=== PATIENT | female | born 1960 | race Caucasian/White ===

== ENCOUNTER 2017-09-29 23:25 | Emergency (ER) | payer MEDICAID ==
[~2017-09-29] VITALS: Ht 165.1 cm; Wt 119.8 kg
[2017-09-29 23:27] VITALS: BP 128/92
[2017-09-30] MEDS ORDERED: NYSTATIN TOPICAL POWDER 15GM TP ONE
== END 2017-09-30 00:09 | disposition home or self-care (01) ==
LOC: ED 23:59
DX: J02.0 Streptococcal pharyngitis (principal); B37.89 Other sites of candidiasis; J45.909 Unspecified asthma, uncomplicated
CPT/HCPCS: 82962; 99283

== ENCOUNTER → 2020-03-09 | Outpatient (CLI) | payer MEDICAID ==
[~2020-03-09] MED LIST: OMNIPAQUE 350 MG/ML, 150 ML BOTTLE ONE
== END | disposition home or self-care (01) ==
LOC: CFH 12:15
PROVIDERS: ATTEND Internal Medicine Cardiovascular Disease
DX: Z13.6 Encounter for screening for cardiovascular disorders (principal); I48.0 Paroxysmal atrial fibrillation
CPT/HCPCS: 71046; 75572; Q9967

== ENCOUNTER → 2020-03-09 | Outpatient (CLI) | payer MEDICAID | END | disposition home or self-care (01) | LOC: STAR 13:41 | PROVIDERS: ATTEND Anesthesiology | DX: Z20.828 Contact with and (suspected) exposure to other viral communicable diseases (principal) | CPT/HCPCS: 87635 ==

== ENCOUNTER 2020-03-14 06:01 | Observation (INO) | payer MEDICAID ==
[~2020-03-14] VITALS: Ht 165.1 cm; Wt 149.9 kg
[2020-03-14 06:26] VITALS: BP 137/90
[2020-03-14] MEDS ORDERED: MOME13HF3 INH (06:41)
[2020-03-14] MEDS ORDERED: LOSA50TA14 PO (06:41)
[2020-03-14] MEDS ORDERED: POTA10TA6 PO (06:41)
[2020-03-14] MEDS ORDERED: RIVA20TA PO (06:41)
[2020-03-14] MEDS ORDERED: FURO20TA3 PO (06:41)
[2020-03-14] MEDS ORDERED: AMIO200T42 PO (06:41)
[2020-03-14] MEDS ORDERED: ATOR20TA37 PO (06:41)
[2020-03-14] MEDS ORDERED: SODIUM CHLORIDE 0.9% 1,000 ML IV SCH ×2 (07:00)
[2020-03-14 07:06] LABS: BASOPHILS % (AUTO) 1 % (0-1); EOSINOPHILS % (AUTO) 3 % (1-7); LYMPHOCYTES % (AUTO) 26 % (22-44); MD NO; MEAN CORPUSCULAR HEMOGLOBIN 31.2 pg (27.0-34.8); MEAN CORPUSCULAR HGB CONC 32.7 g/dL (32.4-35.8); MONOCYTES % (AUTO) 8 % (2-9); NEUTROPHILS % (AUTO) 62 % (42-75); PLATELET COUNT 315 x10^3/uL (130-400); RED BLOOD COUNT 4.49 x10^6/uL (3.82-5.3); RED CELL DISTRIBUTION WIDTH 14.9 % (9.6-15.2)
[2020-03-14 07:13] LABS: ANION GAP 8 mmol/L (5-15); CALCIUM 9.3 mg/dL (8.5-10.1); CHLORIDE 105 mmol/L (98-107); CREATININE 0.85 mg/dL (0.55-1.02)
[2020-03-14] MEDS ORDERED: FENTANYL PF 100 MCG/2ML ONE (07:36)
[2020-03-14] MEDS ORDERED: LABETALOL 5MG/ML, 20ML IV PRN (08:00)
[2020-03-14] MEDS ORDERED: FENTANYL PF 100 MCG/2ML IV PRN (08:00)
[2020-03-14] MEDS ORDERED: MEPERIDINE/PF 25MG/0.5ML IVPush PRN (08:00)
[2020-03-14] MEDS ORDERED: OXYcodone 5 MG/5 ML ORAL.SOL UDC PO PRN (08:00)
[2020-03-14] MEDS ORDERED: EPHEDRINE 50 MG/ML, 1ML IVPush PRN (08:00)
[2020-03-14] MEDS ORDERED: ONDANSETRON 2MG/ML, 2ML IVPush PRN (08:00)
[2020-03-14] MEDS ORDERED: ACETAMINOPHEN 325 MG TABLET PO PRN ×2 (08:00→12:30)
[2020-03-14] MEDS ORDERED: PROMETHAZINE 25 MG/ML, 1ML IVPush PRN (08:00)
[2020-03-14] MEDS ORDERED: hydrALAzine 20 MG/ML, 1ML IV PRN (08:00)
[2020-03-14] MEDS ORDERED: HYDROmorphone 1 MG/ML, 1ML INJ IVPush PRN (08:00)
[2020-03-14] MEDS ORDERED: RIVAROXABAN 20 MG TABLET ONE (08:13)
[2020-03-14] MEDS ORDERED: LIDOCAINE 2%, 20ML ONE (08:23)
[2020-03-14] MEDS ORDERED: PROPOFOL 10 MG/ML, 20ML ONE (08:38)
[2020-03-14] MEDS ORDERED: ROCURONIUM 10MG/ML,5ML ONE ×2 (08:38→11:04)
[2020-03-14] MEDS ORDERED: DEXAMETHASONE 4 MG/ML, 1ML ONE ×2 (08:38→08:39)
[2020-03-14] MEDS ORDERED: ONDANSETRON 2MG/ML, 2ML ONE (08:38)
[2020-03-14] MEDS ORDERED: SUCCINYLCHOLINE 20 MG/ML, 10ML ONE (08:38)
[2020-03-14] MEDS ORDERED: SUGAMMADEX 200 MG/2 ML IVPush ONE ×2 (08:39)
[2020-03-14] MEDS: RIVAROXABAN 20 MG TABLET PO SCH (12:30)
[2020-03-14 13:48] VITALS: BP 128/85
[2020-03-14 17:06] LABS: BASOPHILS % (AUTO) 0 % (0-1); EOSINOPHILS % (AUTO) 0 % (1-7); LYMPHOCYTES % (AUTO) 5 % (22-44); MEAN CORPUSCULAR HEMOGLOBIN 31.1 pg (27.0-34.8); MEAN CORPUSCULAR HGB CONC 32.6 g/dL (32.4-35.8); MONOCYTES % (AUTO) 2 % (2-9); NEUTROPHILS % (AUTO) 93 % (42-75); PLATELET COUNT 298 x10^3/uL (130-400); RED BLOOD COUNT 4.42 x10^6/uL (3.82-5.3); RED CELL DISTRIBUTION WIDTH 14.8 % (9.6-15.2)
[2020-03-14 17:29] LABS: MD SCAN
[2020-03-14] MEDS: BENZONATATE 100 MG CAPSULE PO SCH ×2 (17:34→23:02)
[2020-03-14] MEDS: HYDROcodone/APAP 5/325 TABLET PO PRN ×2 (17:36→23:46)
[2020-03-14 19:31] VITALS: BP 101/70
[2020-03-14] MEDS: ATORVASTATIN 20 MG TABLET PO SCH ×2 (21:00→23:02)
[2020-03-14] MEDS ORDERED: RIVAROXABAN 20 MG TABLET PO SCH (21:00)
[2020-03-14] MEDS: COLCHICINE 0.6 MG CAPSULE PO SCH (23:02)
[2020-03-15 01:30] VITALS: BP 117/79
[2020-03-15 05:58] VITALS: BP 170/68
[2020-03-15 06:18] LABS: BASOPHILS % (AUTO) 0 % (0-1); EOSINOPHILS % (AUTO) 0 % (1-7); LYMPHOCYTES % (AUTO) 10 % (22-44); MEAN CORPUSCULAR HEMOGLOBIN 31.9 pg (27.0-34.8); MEAN CORPUSCULAR HGB CONC 32.8 g/dL (32.4-35.8); MONOCYTES % (AUTO) 8 % (2-9); NEUTROPHILS % (AUTO) 83 % (42-75); PLATELET COUNT 329 x10^3/uL (130-400); RED BLOOD COUNT 3.99 x10^6/uL (3.82-5.3); RED CELL DISTRIBUTION WIDTH 14.9 % (9.6-15.2)
[2020-03-15 06:22] LABS: MD NO
[2020-03-15 08:13] VITALS: BP 115/74
[2020-03-15] MEDS ORDERED: POTASSIUM CHLORIDE 10 MEQ TABLET.ER PO SCH (09:00)
[2020-03-15] MEDS ORDERED: LOSARTAN 50MG TABLET PO SCH (09:00)
[2020-03-15] MEDS ORDERED: AMIODARONE 200 MG TABLET PO SCH (09:00)
[2020-03-15] MEDS ORDERED: FUROSEMIDE 20 MG TABLET PO SCH (09:00)
[2020-03-15] MEDS: COLCHICINE 0.6 MG CAPSULE PO SCH (09:47)
[2020-03-15] MEDS: RIVAROXABAN 20 MG TABLET PO SCH (09:47)
[2020-03-15] MEDS: BENZONATATE 100 MG CAPSULE PO SCH (09:48)
[2020-03-15] MEDS ORDERED: BENZ-17 PO (10:21)
[2020-03-15] MEDS ORDERED: COLC0.6C3 PO (10:21)
[2020-03-15] MEDS ORDERED: AMIO200T42 PO (10:22)
== END 2020-03-15 13:39 | disposition home or self-care (01) ==
LOC: CACL 06:01 → ORIP 12:13 → 5SO 13:48 → DCLOUNGE 03-15 13:25
PROVIDERS: ADMIT Internal Medicine Cardiovascular Disease; ATTEND Internal Medicine Cardiovascular Disease
DX: I48.91 Unspecified atrial fibrillation (principal); I48.92 Unspecified atrial flutter; E78.5 Hyperlipidemia, unspecified; I11.0 Hypertensive heart disease with heart failure; I50.9 Heart failure, unspecified; J44.9 Chronic obstructive pulmonary disease, unspecified; F15.11 Other stimulant abuse, in remission; Z79.899 Other long term (current) drug therapy
CPT/HCPCS: 36415; 71045; 80048; 85025; 85347; 93306; 93312; 93321; 93325; 93613; 93655; 93656; 93657; 93662; C1730; C1732; C1759; C1766; C1769; C1893; C1894; G0378; J0330; J1100; J2405; J2704; J3010; J3490